=== PATIENT | female | born 1945 | race Hispanic/Latino ===

== ENCOUNTER 2019-07-10 09:36 | Day surgery (SDC) | payer MEDICARE ==
[~2019-07-10] VITALS: Ht 154.9 cm; Wt 64.0 kg
[~2019-07-10 09:36] MED LIST: SODIUM CHLORIDE 0.9% 1000ML 1,000 ML IV ONE
[2019-07-10 12:02] VITALS: BP 106/50
[2019-07-10 12:09] VITALS: BP 115/41
[2019-07-10 12:16] VITALS: BP 137/52
[2019-07-10 12:19] VITALS: BP 138/52
== END 2019-07-10 12:35 | disposition home or self-care (01) ==
LOC: ENDO 09:36 → DAH 09:36 → ENDO 12:35
PROVIDERS: ATTEND Internal Medicine
DX: R10.13 Epigastric pain (principal); K29.50 Unspecified chronic gastritis without bleeding; K31.89 Other diseases of stomach and duodenum; J44.9 Chronic obstructive pulmonary disease, unspecified; E11.9 Type 2 diabetes mellitus without complications; E78.5 Hyperlipidemia, unspecified; F32.9 Major depressive disorder, single episode, unspecified; K21.9 Gastro-esophageal reflux disease without esophagitis; I10 Essential (primary) hypertension; Z79.82 Long term (current) use of aspirin; Z79.899 Other long term (current) drug therapy; Z79.84 Long term (current) use of oral hypoglycemic drugs; Z72.89 Other problems related to lifestyle; Z82.49 Family history of ischemic heart disease and other diseases of the circulatory system; Z83.3 Family history of diabetes mellitus
CPT/HCPCS: 43239; 82948 ×2; 88305; 93005; A4215; A4221; A4222; A4223; A4606; A4615; A4663; J7030